=== PATIENT | female | born 1960 | race Caucasian/White ===

== ENCOUNTER 2018-04-05 08:34 | Emergency (ER) | payer BC ==
[2018-04-05] MEDS ORDERED: ONDANSETRON 4 MG TAB.RAPDIS PO ONE (09:33)
--- NOTE | 2018-04-05 09:37 | ER Document Report ---
ED General - General Chief Complaint: Closed Head Injury Stated Complaint: HEAD INJURY Time Seen by Provider: 04/05/18 09:18 Information source: Patient Notes: 57-year-old female that hit the front of her head yesterday on a cabinet under the sink. She did not lose consciousness. She has had no vomiting. She feels very nauseous. She denies any blurry vision, weakness or numbness. She is not on blood thinning medications. is concerned because the headache has persisted. Patient denies any neck pain, chest pain, abdominal pain, fevers or dysuria. She has had 5 bouts of nonbloody diarrhea. She denies any abdominal discomfort. TRAVEL OUTSIDE OF THE [place] IN LAST 30 DAYS: No - HPI Onset: Other - See above Onset/Duration: Sudden Severity: Mild Pain Level: 1 Associated symptoms: Other - See above Exacerbated by: Denies Relieved by: Denies Similar symptoms previously: No Recently seen / treated by doctor: No - Related Data Allergies/Adverse Reactions: bee venom protein (honey bee) Allergy (Verified 04/05/18 08:35) Past Medical History - Social History Smoking Status: Never Smoker Chew tobacco use (# tins/day): No Frequency of alcohol use: None Drug Abuse: None Family History: Reviewed & Not Pertinent Patient has suicidal ideation: No Patient has homicidal ideation: No Pulmonary Medical History: Reports: Hx Asthma Renal/ Medical History: Denies: Hx Peritoneal Dialysis Past Surgical History: Reports: Hx Section Review of Systems - Review of Systems Constitutional: denies: Fever EENT: denies: Eye discharge, Nose discharge Respiratory: denies: Short of breath Gastrointestinal: denies: Vomiting Genitourinary: denies: Dysuria Musculoskeletal: denies: Leg swelling Skin: Other - no hives. denies: Rash Neurological/Psychological: Other - no slurred speech -: Yes All other systems reviewed and negative Physical Exam - Vital signs Vitals: Temp Pulse Resp BP Pulse Ox 97.7 F 68 20 119/64 96 04/05/18 08:40 04/05/18 08:40 04/05/18 08:40 04/05/18 08:40 04/05/18 08:40 Notes: Reviewed vital signs and nursing note as charted by RN. CONSTITUTIONAL: Alert and oriented and responds appropriately to questions. Well -appearing; well-nourished HEAD: Normocephalic; atraumatic with no obvious abrasions, lacerations, or hematomas EYES: PERRL; full extraocular range of motion ENT: Normal nose; no rhinorrhea; moist mucous membranes; pharynx without lesions noted NECK: Supple without meningismus; non-tender CARD: Regular rate and rhythm; no murmurs, symmetric distal pulses RESP: Normal chest excursion without splinting or tachypnea; breath sounds clear and equal bilaterally ABD/GI: Normal bowel sounds; non-distended; soft, non-tender BACK: The back appears normal and is non-tender to palpation EXT: Normal ROM in all joints; non-tender to palpation, no edema SKIN: No acute lesions noted NEURO: CN II through XII are intact. Patient has 5 out of 5 bilateral upper and lower extremity strength with sensation intact light touch PSYCH: The patient's mood and manner are appropriate. Grooming and personal hygiene are appropriate. Course - Re-evaluation Re-evalutation: 04/05/18 09:36 Given the history and physical examination I will order CT scan of the head. I will hold on any pain medications at patient's request. I will provide a ODT Zofran as the patient does not want any IV medications or fluids. 04/05/18 10:50 Still no focal neurologic deficits. CT scan is recorded. The radiologist believes this is most likely an arachnoid cyst. He does not see any acute blood. No previous head trauma. Patient will be discharged home with strict return precautions and follow-up for reassessment. - Vital Signs Vital signs: Temp Pulse Resp BP Pulse Ox 97.7 F 68 20 119/64 96 04/05/18 08:40 04/05/18 08:40 04/05/18 08:40 04/05/18 08:40 04/05/18 08:40 Discharge - Discharge Clinical Impression: Closed head injury Qualifiers: Encounter type: initial encounter Qualified Code(s): S09.90XA - Unspecified injury of head, initial encounter Condition: Good Disposition: HOME, SELF-CARE Additional Instructions: Come back immediately with any increased pain, change in location or quality of pain, blurry vision, weakness or numbness, persistent vomiting, or any other acute problems. Please attempt to refrain from a repeat head injury until you have been reevaluated by either the primary care physician or neurologist. Attempt to provide brain rest as we have discussed. Prescriptions: Ondansetron [Zofran Odt 4 mg Tablet] 1 tab PO Q6H #12 tab.rapdis
[2018-04-05] MEDS ORDERED: ONDANSETRON HCL INJ/PF 4 MG/2 ML SDV IM ONE (09:38)
[2018-04-05] MEDS ORDERED: ONDANSETRON HCL INJ/PF 4 MG/2 ML SDV IV ONE (09:40)
[2018-04-05] MEDS ORDERED: NORMAL SALINE 1000 ML 1,000 ML IV ONE (09:40)
--- NOTE | 2018-04-05 10:47 | RADIOLOGY REPORT (SQ) ---
EXAM DESCRIPTION: CT HEAD WITHOUT COMPLETED DATE/TIME: 04/05/2018 10:17 am REASON FOR STUDY: 16; closed head injury COMPARISON: None. TECHNIQUE: Axial images acquired through the brain without intravenous contrast. Images reviewed wi th bone, brain and subdural windows. Additional sagittal and coronal reconstructions were generated. Images stored on PACS. All CT scanners at this facility use dose modulation, iterative reconstruction, and/or weight based d osing when appropriate to reduce radiation dose to as low as reasonably achievable (ALARA). [facility]: Dose Right [facility]: CareDose [facility]: Dose Right [facility]: Teradose 4D [facility]: Smart Qwite RADIATION DOSE: CT Rad equipment meets quality standard of care and radiation dose reduction techniq ues were employed. CTDIvol: 53.2 mGy. DLP: 1044 mGy-cm. mGy. LIMITATIONS: None. FINDINGS: VENTRICLES: Normal size and contour. CEREBRUM: No masses. No hemorrhage. No midline shift. No evidence for acute infarction. Normal gra y/white matter differentiation. No areas of low density in the white matter. CEREBELLUM: Possible arachnoid cyst in the posterior fossa on the right. No masses. No hemorrhage. EXTRAAXIAL SPACES: No fluid collections. No masses. ORBITS AND GLOBE: No intra- or extraconal masses. Normal contour of globe without masses. CALVARIUM: No fracture. PARANASAL SINUSES: No fluid or mucosal thickening. SOFT TISSUES: No mass or hematoma. OTHER: No other significant finding. IMPRESSION: Peripheral fluid collection in the posterior fossa on the right. Arachnoid cyst versus chronic subdural. No acute finding in the brain. EVIDENCE OF ACUTE STROKE: NO. COMMENT: Quality ID # [id number]: Final reports with documentation of one or more dose reduction techniques (e.g., Automated exposure control, adjustment of the mA and/or kV according to patient size, use of iterative reconstruction technique) TECHNICAL DOCUMENTATION: JOB ID: [id number] [employer]- All Rights Reserved Reading location - IP/workstation name: [email or web address]
[2018-04-05 11:20] VITALS: BP 101/58
== END 2018-04-05 11:55 | disposition home or self-care (01) ==
LOC: ER 08:34
DX: S09.90XA Unspecified injury of head, initial encounter (principal); R11.0 Nausea; W22.09XA Striking against other stationary object, initial encounter
CPT/HCPCS: 99284; 96361; 96374; 70450; J2405; J7030